=== PATIENT | female | born 1945 | race Two or more races ===

== ENCOUNTER 2020-07-11 22:50 | Inpatient (IN) | payer MEDICARE, MEDICAID ==
[~2020-07-11] VITALS: Ht 165.1 cm; Wt 49.6 kg
[2020-07-11] MEDS ORDERED: ASPIRIN 81MG TABLET PO ONE (23:30)
[2020-07-12 03:13] LABS: HEMATOCRIT. 41.4 % (36.0-48.0); HEMOGLOBIN. 13.7 g/dL (12.0-16.0); MEAN CORPUSCULAR HEMOGLOBIN 29.7 pg (28.0-32.0); MEAN CORPUSCULAR VOLUME 89.4 fL (81.0-99.0); MEAN PLATELET VOLUME 8.6 fl (7.4-10.4); PLATELET 139 x1000/uL (130-400); RED BLOOD CELL COUNT 4.63 mill/uL (4.2-5.4); RED CELL DISTRIBUTION WIDTH 14.8 % (11.6-14.6)
[2020-07-12 03:20] LABS: CHLORIDE 110 mEq/L (98-107)
[2020-07-12 03:23] LABS: D-DIMER 0.41 mg/L FEU (<0.50); INR 0.9; PROTHROMBIN TIME 9.7 sec (9.6-11.0)
[2020-07-12] MEDS ORDERED: HYDROCODONE/ACETAMINOPHEN 5/325MG TABLET PO ONE (04:15)
[2020-07-12] MEDS ORDERED: ASPIRIN 81MG TABLET PO NR (05:00)
[2020-07-12 05:27] LABS: PLATELET ESTIMATE NORMAL
[2020-07-12] MEDS ORDERED: ACETAMINOPHEN 325MG TABLET PO PRN (06:30)
[2020-07-12] MEDS ORDERED: ONDANSETRON HCL 4MG/2ML INJ IV PRN (06:30)
[2020-07-12] MEDS ORDERED: NITROGLYCERIN 0.4MG TABLET SL SL PRN (06:30)
[2020-07-12] MEDS ORDERED: ALBUTEROL 6.7GM HFA INHALER ORI PRN (06:30)
[2020-07-12] MEDS ORDERED: MAGNESIUM/ALUMINUM HYDROXIDE/SIMETHICONE 30ML UDC PO PRN (06:30)
[2020-07-12] MEDS ORDERED: GUAIFENESIN 200MG/10ML SUGAR FREE UDC PO PRN (06:30)
[2020-07-12] MEDS ORDERED: DOCUSATE SODIUM 100MG CAPSULE PO PRN (06:30)
[2020-07-12] MEDS: ALBUTEROL 6.7GM HFA INHALER ORI SCH ×3 (09:00→21:00)
[2020-07-12] MEDS ORDERED: AZITHROMYCIN 500 MG in DEXT 5% WATER 250 ML IV SCH (09:00)
[2020-07-12] MEDS ORDERED: VALS1TAB6 MT (10:59)
[2020-07-12] MEDS ORDERED: DEXT1CAP3 MT (10:59)
[2020-07-12] MEDS ORDERED: LORA-250 PO (10:59)
[2020-07-12] MEDS ORDERED: METF500T60 MT (10:59)
[2020-07-12] MEDS ORDERED: ATOR40TA70 MT (10:59)
[2020-07-12] MEDS ORDERED: BUSP10TA4 MT (10:59)
[2020-07-12] MEDS ORDERED: GABA-533 PO (10:59)
[2020-07-12] MEDS ORDERED: TRAZ-252 MT (10:59)
[2020-07-12] MEDS ORDERED: HYDR-4135 MT (10:59)
[2020-07-12] MEDS ORDERED: ASPI-1079 PO (10:59)
[2020-07-12] MEDS ORDERED: LEVVL SQ (10:59)
[2020-07-12] MEDS ORDERED: DIVA500T3 MT (10:59)
[2020-07-12] MEDS ORDERED: HYDR-3281 PO (10:59)
[2020-07-12] MEDS ORDERED: KEPP500 MT (10:59)
[2020-07-12 11:00] VITALS: BP 140/80
[2020-07-12 12:00] VITALS: BP 96/50
[2020-07-12] MEDS: ASPIRIN 325MG EC TABLET PO SCH (12:22)
[2020-07-12] MEDS: FAMOTIDINE 20MG TABLET PO SCH (12:22)
[2020-07-12] MEDS: GUAIFENESIN/DM 600MG/30MG ER TAB 12HR PO SCH ×2 (12:23→21:19)
[2020-07-12] MEDS: ENOXAPARIN 40MG/0.4ML SYR SUBCUT SCH (12:23)
[2020-07-12] MEDS: METOPROLOL TARTRATE 25MG TABLET PO SCH ×2 (12:23→21:18)
[2020-07-12] MEDS: ASCORBIC ACID 500 MG TABLET PO SCH ×2 (12:23→21:18)
[2020-07-12] MEDS: ZINC SULFATE 220 MG ( 50 ) CAPSULE PO SCH (12:24)
[2020-07-12] MEDS: CEFTRIAXONE 1,000 MG in DEXTROSE 5% WATER 50 ML IV SCH (15:57)
[2020-07-12 16:00] VITALS: BP 128/54
[2020-07-12] MEDS: KETOROLAC 15MG/ML VIAL IV PRN (17:04)
[2020-07-12 17:55] LABS: CREATINE KINASE MB FRACTION 1.1 ng/mL (0.5-3.6)
[2020-07-12 20:00] VITALS: BP 120/54
[2020-07-12] MEDS ORDERED: ZOLPIDEM TARTRATE 5MG TABLET PO PRN (21:00)
[2020-07-13] VITALS: BP 125/62
[2020-07-13] MEDS: ALBUTEROL 6.7GM HFA INHALER ORI SCH ×4 (03:09→21:00)
[2020-07-13 04:00] VITALS: BP 130/59
[2020-07-13 08:00] VITALS: BP 169/65
[2020-07-13] MEDS: ASPIRIN 325MG EC TABLET PO SCH (08:46)
[2020-07-13] MEDS: FAMOTIDINE 20MG TABLET PO SCH (08:46)
[2020-07-13] MEDS: ASCORBIC ACID 500 MG TABLET PO SCH (08:46)
[2020-07-13] MEDS: ZINC SULFATE 220 MG ( 50 ) CAPSULE PO SCH (08:47)
[2020-07-13] MEDS: GUAIFENESIN/DM 600MG/30MG ER TAB 12HR PO SCH (08:47)
[2020-07-13] MEDS: ENOXAPARIN 40MG/0.4ML SYR SUBCUT SCH (08:47)
[2020-07-13] MEDS: METOPROLOL TARTRATE 25MG TABLET PO SCH (08:47)
[2020-07-13 09:27] LABS: BASOPHILS % 0.7 % (0.0-2.0); EOSINOPHILS % 4.5 % (0.0-5.0); HEMATOCRIT. 38.1 % (36.0-48.0); HEMOGLOBIN. 12.9 g/dL (12.0-16.0); LYMPHOCYTES % 27.6 % (20.0-50.0); MEAN CORPUSCULAR VOLUME 88.4 fL (81.0-99.0); MEAN PLATELET VOLUME 8.2 fl (7.4-10.4); MONOCYTES % 14.3 % (2.0-8.0); NEUTROPHILS % 52.9 % (40.0-76.0); PLATELET 125 x1000/uL (130-400); RED BLOOD CELL COUNT 4.31 mill/uL (4.2-5.4); RED CELL DISTRIBUTION WIDTH 14.5 % (11.6-14.6)
[2020-07-13 09:46] LABS: CHLORIDE 110 mEq/L (98-107)
[2020-07-13 09:52] LABS: PHOSPHORUS 3.4 mg/dL (2.5-4.9)
[2020-07-13 09:55] LABS: CREATINE KINASE 70 IU/L (26-192)
[2020-07-13] MEDS: CEFTRIAXONE 1,000 MG in DEXTROSE 5% WATER 50 ML IV SCH (10:45)
[2020-07-13] MEDS: AZITHROMYCIN 500 MG in DEXT 5% WATER 250 ML IV SCH (10:45)
[2020-07-13] MEDS: KETOROLAC 15MG/ML VIAL IV PRN ×2 (11:01→17:40)
[2020-07-13 12:00] VITALS: BP 155/59
[2020-07-13 16:00] VITALS: BP 131/87
[2020-07-13 20:00] VITALS: BP 123/58
[2020-07-14] VITALS: BP 171/84
[2020-07-14] MEDS: ASCORBIC ACID 500 MG TABLET PO SCH ×3 (00:05→22:39)
[2020-07-14] MEDS: GUAIFENESIN/DM 600MG/30MG ER TAB 12HR PO SCH ×3 (00:05→22:39)
[2020-07-14] MEDS: METOPROLOL TARTRATE 25MG TABLET PO SCH ×3 (00:05→22:39)
[2020-07-14] MEDS: TRAMADOL 50MG TABLET PO PRN ×2 (00:06→12:18)
[2020-07-14] MEDS: ALBUTEROL 6.7GM HFA INHALER ORI SCH ×4 (03:00→22:44)
[2020-07-14 04:00] VITALS: BP 180/75
[2020-07-14] MEDS: CLONIDINE 0.1MG TABLET PO PRN ×2 (04:33→14:27)
[2020-07-14 08:00] VITALS: BP 128/64
[2020-07-14] MEDS: ASPIRIN 325MG EC TABLET PO SCH (09:14)
[2020-07-14] MEDS: FAMOTIDINE 20MG TABLET PO SCH (09:15)
[2020-07-14] MEDS: ZINC SULFATE 220 MG ( 50 ) CAPSULE PO SCH (09:15)
[2020-07-14] MEDS: ENOXAPARIN 30MG/0.3ML SYR SUBCUT SCH ×2 (09:17→22:44)
[2020-07-14] MEDS: AZITHROMYCIN 500 MG in DEXT 5% WATER 250 ML IV SCH (09:17)
[2020-07-14] MEDS: KETOROLAC 15MG/ML VIAL IV PRN (09:22)
[2020-07-14 12:00] VITALS: BP 169/85
[2020-07-14] MEDS: CEFTRIAXONE 1,000 MG in DEXTROSE 5% WATER 50 ML IV SCH (12:04)
[2020-07-14 16:00] VITALS: BP 130/65
[2020-07-14 20:00] VITALS: BP 122/49
[2020-07-15] VITALS: BP 154/98
[2020-07-15] MEDS: ALBUTEROL 6.7GM HFA INHALER ORI SCH ×4 (03:12→21:23)
[2020-07-15 04:00] VITALS: BP 139/80
[2020-07-15 08:00] VITALS: BP 174/78
[2020-07-15] MEDS: AZITHROMYCIN 500 MG in DEXT 5% WATER 250 ML IV SCH (09:20)
[2020-07-15] MEDS: CEFTRIAXONE 1,000 MG in DEXTROSE 5% WATER 50 ML IV SCH (09:20)
[2020-07-15] MEDS: KETOROLAC 15MG/ML VIAL IV PRN (09:21)
[2020-07-15] MEDS: FAMOTIDINE 20MG TABLET PO SCH (09:22)
[2020-07-15] MEDS: ZINC SULFATE 220 MG ( 50 ) CAPSULE PO SCH (09:22)
[2020-07-15] MEDS: ASCORBIC ACID 500 MG TABLET PO SCH ×2 (09:22→21:26)
[2020-07-15] MEDS: ASPIRIN 325MG EC TABLET PO SCH (09:22)
[2020-07-15] MEDS: METOPROLOL TARTRATE 25MG TABLET PO SCH ×2 (09:22→21:20)
[2020-07-15] MEDS: GUAIFENESIN/DM 600MG/30MG ER TAB 12HR PO SCH ×2 (09:22→21:19)
[2020-07-15] MEDS: ENOXAPARIN 30MG/0.3ML SYR SUBCUT SCH ×2 (09:23→21:30)
[2020-07-15 10:05] LABS: CHLORIDE 110 mEq/L (98-107)
[2020-07-15 10:13] LABS: PHOSPHORUS 2.8 mg/dL (2.5-4.9)
[2020-07-15 12:00] VITALS: BP 176/84
[2020-07-15 16:00] VITALS: BP 135/78
[2020-07-15 20:00] VITALS: BP 176/78
[2020-07-15] MEDS: CLONIDINE 0.1MG TABLET PO PRN (21:20)
[2020-07-16] VITALS (7 sets, daily range): BP systolic 119–188; BP diastolic 65–101
[2020-07-16] MEDS: TRAMADOL 50MG TABLET PO PRN (01:21)
[2020-07-16] MEDS: ALBUTEROL 6.7GM HFA INHALER ORI SCH ×4 (04:17→21:00)
[2020-07-16] MEDS: CEFTRIAXONE 1,000 MG in DEXTROSE 5% WATER 50 ML IV SCH (08:54)
[2020-07-16] MEDS: ASPIRIN 325MG EC TABLET PO SCH (08:55)
[2020-07-16] MEDS: METOPROLOL TARTRATE 25MG TABLET PO SCH ×2 (08:55→21:00)
[2020-07-16] MEDS: ASCORBIC ACID 500 MG TABLET PO SCH ×3 (08:55→21:51)
[2020-07-16] MEDS: CLONIDINE 0.1MG TABLET PO PRN (08:55)
[2020-07-16] MEDS: GUAIFENESIN/DM 600MG/30MG ER TAB 12HR PO SCH ×3 (08:55→21:51)
[2020-07-16] MEDS: FAMOTIDINE 20MG TABLET PO SCH (08:55)
[2020-07-16] MEDS: ZINC SULFATE 220 MG ( 50 ) CAPSULE PO SCH (08:56)
[2020-07-16] MEDS: ENOXAPARIN 30MG/0.3ML SYR SUBCUT SCH ×3 (09:01→21:51)
[2020-07-16] MEDS: KETOROLAC 15MG/ML VIAL IV PRN ×2 (09:01→17:30)
[2020-07-16] MEDS ORDERED: DEXTROSE 50% WATER 50ML SYRINGE IV PRN (10:00)
[2020-07-16] MEDS: AZITHROMYCIN 500 MG in DEXT 5% WATER 250 ML IV SCH (10:38)
[2020-07-16] MEDS: BLOOD SUGAR DIAGNOSTIC STRIP TEST SCH ×3 (12:34→21:19)
[2020-07-16] MEDS: INSULIN LISPRO 100 UNITS/ML SUBCUT SCH ×3 (12:53→21:00)
[2020-07-17] VITALS: BP 161/77
[2020-07-17 04:00] VITALS: BP 137/68
[2020-07-17] MEDS: BLOOD SUGAR DIAGNOSTIC STRIP TEST SCH ×4 (07:35→21:05)
[2020-07-17] MEDS: INSULIN LISPRO 100 UNITS/ML SUBCUT SCH ×4 (07:35→21:18)
[2020-07-17 08:00] VITALS: BP 180/99
[2020-07-17] MEDS: AZITHROMYCIN 500 MG in DEXT 5% WATER 250 ML IV SCH (09:17)
[2020-07-17] MEDS: CEFTRIAXONE 1,000 MG in DEXTROSE 5% WATER 50 ML IV SCH (09:17)
[2020-07-17] MEDS: ALBUTEROL 6.7GM HFA INHALER ORI SCH ×2 (09:18→14:01)
[2020-07-17] MEDS: ASPIRIN 325MG EC TABLET PO SCH (09:18)
[2020-07-17] MEDS: GUAIFENESIN/DM 600MG/30MG ER TAB 12HR PO SCH ×2 (09:18→21:19)
[2020-07-17] MEDS: ASCORBIC ACID 500 MG TABLET PO SCH ×2 (09:19→21:19)
[2020-07-17] MEDS: FAMOTIDINE 20MG TABLET PO SCH (09:19)
[2020-07-17] MEDS: ZINC SULFATE 220 MG ( 50 ) CAPSULE PO SCH (09:19)
[2020-07-17] MEDS: CLONIDINE 0.1MG TABLET PO PRN (09:19)
[2020-07-17] MEDS: METOPROLOL TARTRATE 25MG TABLET PO SCH ×2 (09:19→21:20)
[2020-07-17] MEDS: ENOXAPARIN 30MG/0.3ML SYR SUBCUT SCH ×2 (09:20→21:19)
[2020-07-17 12:00] VITALS: BP 137/88
[2020-07-17 16:00] VITALS: BP 153/63
[2020-07-17 20:00] VITALS: BP 140/74
[2020-07-18] VITALS: BP 133/94
[2020-07-18 04:00] VITALS: BP 165/76
[2020-07-18] MEDS: BLOOD SUGAR DIAGNOSTIC STRIP TEST SCH ×5 (06:58→21:17)
[2020-07-18] MEDS: INSULIN LISPRO 100 UNITS/ML SUBCUT SCH ×4 (07:28→21:00)
[2020-07-18 08:00] VITALS: BP 165/67
[2020-07-18] MEDS: GUAIFENESIN/DM 600MG/30MG ER TAB 12HR PO SCH ×2 (09:25→21:07)
[2020-07-18] MEDS: METOPROLOL TARTRATE 25MG TABLET PO SCH ×2 (09:26→21:08)
[2020-07-18] MEDS: FAMOTIDINE 20MG TABLET PO SCH (09:26)
[2020-07-18] MEDS: ENOXAPARIN 30MG/0.3ML SYR SUBCUT SCH ×2 (09:26→21:09)
[2020-07-18] MEDS: ZINC SULFATE 220 MG ( 50 ) CAPSULE PO SCH (09:26)
[2020-07-18] MEDS: ASCORBIC ACID 500 MG TABLET PO SCH ×2 (09:26→21:07)
[2020-07-18] MEDS: ASPIRIN 325MG EC TABLET PO SCH (09:26)
[2020-07-18] MEDS: ALBUTEROL 6.7GM HFA INHALER ORI SCH ×3 (09:27→21:17)
[2020-07-18 12:00] VITALS: BP 155/86
[2020-07-18 16:00] VITALS: BP 170/96
[2020-07-18] MEDS: CLONIDINE 0.1MG TABLET PO PRN (17:41)
[2020-07-18 20:00] VITALS: BP 133/77
[2020-07-19] VITALS: BP 159/87
[2020-07-19] MEDS: ALBUTEROL 6.7GM HFA INHALER ORI SCH ×4 (03:00→21:00)
[2020-07-19 04:00] VITALS: BP 161/90
[2020-07-19] MEDS: ACETAMINOPHEN 325MG TABLET PO PRN ×2 (06:05→18:31)
[2020-07-19] MEDS: INSULIN LISPRO 100 UNITS/ML SUBCUT SCH ×4 (07:23→21:48)
[2020-07-19 08:00] VITALS: BP_SYST 168; BP_SYST 169; BP_DIAS 76; BP_DIAS 91
[2020-07-19] MEDS: METOPROLOL TARTRATE 25MG TABLET PO SCH ×2 (09:53→21:47)
[2020-07-19] MEDS: GUAIFENESIN/DM 600MG/30MG ER TAB 12HR PO SCH ×2 (09:53→21:00)
[2020-07-19] MEDS: FAMOTIDINE 20MG TABLET PO SCH (09:53)
[2020-07-19] MEDS: ENOXAPARIN 30MG/0.3ML SYR SUBCUT SCH ×2 (09:53→22:11)
[2020-07-19] MEDS: ASPIRIN 325MG EC TABLET PO SCH (09:54)
[2020-07-19] MEDS: ASCORBIC ACID 500 MG TABLET PO SCH ×2 (09:54→21:47)
[2020-07-19] MEDS: ZINC SULFATE 220 MG ( 50 ) CAPSULE PO SCH (09:58)
[2020-07-19 12:00] VITALS: BP 144/84
[2020-07-19] MEDS: BLOOD SUGAR DIAGNOSTIC STRIP TEST SCH ×3 (12:24→21:46)
[2020-07-19 16:00] VITALS: BP 130/75
[2020-07-19 20:00] VITALS: BP 135/71
[2020-07-20] VITALS: BP 167/96
[2020-07-20] MEDS: CLONIDINE 0.1MG TABLET PO PRN (00:33)
[2020-07-20 04:00] VITALS: BP 182/83
[2020-07-20 06:24] VITALS: BP 151/71
[2020-07-20] MEDS: BLOOD SUGAR DIAGNOSTIC STRIP TEST SCH ×4 (07:40→21:00)
[2020-07-20 08:00] VITALS: BP 161/77
[2020-07-20] MEDS: INSULIN LISPRO 100 UNITS/ML SUBCUT SCH ×4 (08:10→21:12)
[2020-07-20] MEDS: METOPROLOL TARTRATE 25MG TABLET PO SCH ×2 (08:43→21:13)
[2020-07-20] MEDS: ZINC SULFATE 220 MG ( 50 ) CAPSULE PO SCH (08:43)
[2020-07-20] MEDS: FAMOTIDINE 20MG TABLET PO SCH (08:43)
[2020-07-20] MEDS: ASCORBIC ACID 500 MG TABLET PO SCH ×2 (08:43→21:08)
[2020-07-20] MEDS: GUAIFENESIN/DM 600MG/30MG ER TAB 12HR PO SCH ×2 (08:43→21:09)
[2020-07-20] MEDS: ENOXAPARIN 30MG/0.3ML SYR SUBCUT SCH ×2 (08:44→21:00)
[2020-07-20] MEDS: ASPIRIN 325MG EC TABLET PO SCH (08:44)
[2020-07-20] MEDS: ALBUTEROL 6.7GM HFA INHALER ORI SCH ×3 (09:00→21:00)
[2020-07-20] MEDS: ACETAMINOPHEN 325MG TABLET PO PRN ×2 (11:01→17:25)
[2020-07-20 12:00] VITALS: BP 134/99
[2020-07-20 20:00] VITALS: BP 157/53
[2020-07-21] VITALS: BP 167/71
[2020-07-21] MEDS: ALBUTEROL 6.7GM HFA INHALER ORI SCH ×4 (03:00→21:00)
[2020-07-21 04:00] VITALS: BP 160/80
[2020-07-21] MEDS: BLOOD SUGAR DIAGNOSTIC STRIP TEST SCH ×4 (07:40→21:01)
[2020-07-21 08:00] VITALS: BP 199/75
[2020-07-21] MEDS: ASPIRIN 325MG EC TABLET PO SCH (09:34)
[2020-07-21] MEDS: CLONIDINE 0.1MG TABLET PO PRN (09:35)
[2020-07-21] MEDS: GUAIFENESIN/DM 600MG/30MG ER TAB 12HR PO SCH ×2 (09:35→21:07)
[2020-07-21] MEDS: FAMOTIDINE 20MG TABLET PO SCH (09:35)
[2020-07-21] MEDS: ASCORBIC ACID 500 MG TABLET PO SCH ×2 (09:35→21:07)
[2020-07-21] MEDS: METOPROLOL TARTRATE 25MG TABLET PO SCH ×2 (09:35→21:08)
[2020-07-21] MEDS: ZINC SULFATE 220 MG ( 50 ) CAPSULE PO SCH (09:36)
[2020-07-21] MEDS: INSULIN LISPRO 100 UNITS/ML SUBCUT SCH ×4 (09:37→21:09)
[2020-07-21] MEDS: ENOXAPARIN 30MG/0.3ML SYR SUBCUT SCH ×2 (09:39→21:08)
[2020-07-21 12:00] VITALS: BP 143/73
[2020-07-21 16:00] VITALS: BP 140/62
[2020-07-21 20:00] VITALS: BP 128/51
[2020-07-22] VITALS (7 sets, daily range): BP systolic 127–173; BP diastolic 51–85
[2020-07-22] MEDS: ALBUTEROL 6.7GM HFA INHALER ORI SCH ×4 (02:46→20:58)
[2020-07-22] MEDS: BLOOD SUGAR DIAGNOSTIC STRIP TEST SCH ×4 (06:21→20:27)
[2020-07-22] MEDS: FAMOTIDINE 20MG TABLET PO SCH (10:34)
[2020-07-22] MEDS: GUAIFENESIN/DM 600MG/30MG ER TAB 12HR PO SCH ×2 (10:35→21:00)
[2020-07-22] MEDS: METOPROLOL TARTRATE 25MG TABLET PO SCH ×2 (10:35→20:58)
[2020-07-22] MEDS: ASCORBIC ACID 500 MG TABLET PO SCH ×2 (10:36→21:00)
[2020-07-22] MEDS: ENOXAPARIN 30MG/0.3ML SYR SUBCUT SCH ×2 (10:37→21:00)
[2020-07-22] MEDS: ASPIRIN 325MG EC TABLET PO SCH (10:38)
[2020-07-22] MEDS: ZINC SULFATE 220 MG ( 50 ) CAPSULE PO SCH (10:38)
[2020-07-22] MEDS: INSULIN LISPRO 100 UNITS/ML SUBCUT SCH ×4 (10:39→21:02)
[2020-07-22] MEDS: ZOLPIDEM TARTRATE 5MG TABLET PO PRN (21:02)
[2020-07-23] VITALS: BP 168/71
[2020-07-23] MEDS: ALBUTEROL 6.7GM HFA INHALER ORI SCH ×3 (03:00→14:35)
[2020-07-23 04:00] VITALS: BP 147/81
[2020-07-23] MEDS: BLOOD SUGAR DIAGNOSTIC STRIP TEST SCH ×4 (07:50→21:00)
[2020-07-23] MEDS: INSULIN LISPRO 100 UNITS/ML SUBCUT SCH ×4 (08:10→21:31)
[2020-07-23 08:30] VITALS: BP 172/87
[2020-07-23] MEDS: ASPIRIN 325MG EC TABLET PO SCH (10:18)
[2020-07-23] MEDS: ZINC SULFATE 220 MG ( 50 ) CAPSULE PO SCH (10:18)
[2020-07-23] MEDS: GUAIFENESIN/DM 600MG/30MG ER TAB 12HR PO SCH ×3 (10:18→21:00)
[2020-07-23] MEDS: ASCORBIC ACID 500 MG TABLET PO SCH ×2 (10:18→20:15)
[2020-07-23] MEDS: ENOXAPARIN 30MG/0.3ML SYR SUBCUT SCH ×2 (10:19→22:34)
[2020-07-23] MEDS: METOPROLOL TARTRATE 25MG TABLET PO SCH ×2 (10:19→20:16)
[2020-07-23] MEDS: FAMOTIDINE 20MG TABLET PO SCH (10:19)
[2020-07-23] MEDS: ZOLPIDEM TARTRATE 5MG TABLET PO PRN ×2 (10:34→20:17)
[2020-07-23 12:00] VITALS: BP 161/104
[2020-07-23 16:00] VITALS: BP 166/88
[2020-07-23] MEDS: CLONIDINE 0.1MG TABLET PO PRN (17:20)
[2020-07-23] MEDS: ACETAMINOPHEN 325MG TABLET PO PRN ×2 (17:22→22:46)
[2020-07-23 20:00] VITALS: BP 134/74
[2020-07-24] VITALS (7 sets, daily range): BP systolic 128–161; BP diastolic 59–81
[2020-07-24] MEDS: BLOOD SUGAR DIAGNOSTIC STRIP TEST SCH ×4 (07:46→21:00)
[2020-07-24] MEDS: ASPIRIN 325MG EC TABLET PO SCH (09:46)
[2020-07-24] MEDS: METOPROLOL TARTRATE 25MG TABLET PO SCH ×3 (09:46→21:24)
[2020-07-24] MEDS: GUAIFENESIN/DM 600MG/30MG ER TAB 12HR PO SCH ×3 (09:46→21:21)
[2020-07-24] MEDS: ZINC SULFATE 220 MG ( 50 ) CAPSULE PO SCH (09:46)
[2020-07-24] MEDS: ENOXAPARIN 30MG/0.3ML SYR SUBCUT SCH ×2 (09:47→22:04)
[2020-07-24] MEDS: ASCORBIC ACID 500 MG TABLET PO SCH ×2 (09:50→21:00)
[2020-07-24] MEDS: INSULIN LISPRO 100 UNITS/ML SUBCUT SCH ×4 (09:50→21:23)
[2020-07-24] MEDS: FAMOTIDINE 20MG TABLET PO SCH (10:51)
[2020-07-24] MEDS: ACETAMINOPHEN 325MG TABLET PO PRN (18:18)
[2020-07-25] VITALS: BP 149/82
[2020-07-25 04:00] VITALS: BP 150/76
[2020-07-25 06:36] LABS: HEMATOCRIT 40.6 % (36.0-48.0); HEMOGLOBIN 13.5 g/dL (12.0-16.0); MEAN CORPUSCULAR HEMOGLOBIN 29.5 pg (28.0-32.0); MEAN CORPUSCULAR VOLUME 88.3 fL (81.0-99.0); PLATELET 226 x1000/uL (130-400); RED BLOOD CELL COUNT 4.59 mill/uL (4.2-5.4); RED CELL DISTRIBUTION WIDTH 14.4 % (11.6-14.6)
[2020-07-25 06:43] LABS: CHLORIDE 114 mEq/L (98-107)
[2020-07-25] MEDS: BLOOD SUGAR DIAGNOSTIC STRIP TEST SCH ×3 (07:45→18:12)
[2020-07-25 08:00] VITALS: BP 140/86
[2020-07-25] MEDS: ASCORBIC ACID 500 MG TABLET PO SCH (09:05)
[2020-07-25] MEDS: ASPIRIN 325MG EC TABLET PO SCH (09:05)
[2020-07-25] MEDS: ENOXAPARIN 30MG/0.3ML SYR SUBCUT SCH (09:06)
[2020-07-25] MEDS: FAMOTIDINE 20MG TABLET PO SCH (09:06)
[2020-07-25] MEDS: GUAIFENESIN/DM 600MG/30MG ER TAB 12HR PO SCH (09:06)
[2020-07-25] MEDS: ZINC SULFATE 220 MG ( 50 ) CAPSULE PO SCH (09:06)
[2020-07-25] MEDS: INSULIN LISPRO 100 UNITS/ML SUBCUT SCH ×3 (09:08→17:59)
[2020-07-25] MEDS: METOPROLOL TARTRATE 25MG TABLET PO SCH (09:19)
[2020-07-25] MEDS: ZOLPIDEM TARTRATE 5MG TABLET PO PRN (10:28)
[2020-07-25 12:00] VITALS: BP 127/82
[2020-07-25 15:45] VITALS: BP 127/82
[2020-07-25] MEDS: CLONIDINE 0.1MG TABLET PO PRN (15:48)
[2020-07-25 16:00] VITALS: BP 168/93
== END 2020-07-25 19:30 | DRG 871 ==
LOC: ER 22:50 → 7WST 07-12 04:33 → EDBEDREQTM 07-12 04:39 → EDBEDREQ 07-12 04:39 → SUPCPDRO 07-12 06:15 → ENRESERV 07-12 07:51
PROVIDERS: ADMIT Internal Medicine; ATTEND Internal Medicine
DX: A41.89 Other specified sepsis (principal); U07.1 COVID-19; J96.01 Acute respiratory failure with hypoxia; J12.89 Other viral pneumonia; I21.4 Non-ST elevation (NSTEMI) myocardial infarction; E44.1 Mild protein-calorie malnutrition; Z68.1 Body mass index [BMI] 19.9 or less, adult; F32.9 Major depressive disorder, single episode, unspecified; E83.51 Hypocalcemia; E11.9 Type 2 diabetes mellitus without complications; F41.9 Anxiety disorder, unspecified; I10 Essential (primary) hypertension; Z66 Do not resuscitate; J45.909 Unspecified asthma, uncomplicated; Z86.19 Personal history of other infectious and parasitic diseases; Z88.8 Allergy status to other drugs, medicaments and biological substances; Z79.899 Other long term (current) drug therapy
CPT/HCPCS: 36415; 71045; 80048; 80053; 80061; 82550; 82553; 82962; 83036; 83605; 83615; 83735; 83880; 84100; 84145; 84484; 85025; 85027; 85379; 87426; 87635; 87804; 93005; 93970; 99291; A6261; C1893; J0456; J0696; J1650; J1815; J1885; J7060